=== PATIENT | male | born 2000 | race Hispanic/Latino ===

== ENCOUNTER 2022-07-18 09:39 | Emergency (ER) | payer SELFPAY | END 2022-07-18 17:20 | disposition home or self-care (01) | LOC: CSHERS 09:39 | DX: Z02.89 Encounter for other administrative examinations (principal); R00.0 Tachycardia, unspecified | CPT/HCPCS: 99281 ==

== ENCOUNTER 2022-09-22 00:36 | Emergency (ER) | payer SELFPAY ==
[2022-09-22 01:13] LABS: #Basophils 0.1 10x3/uL (0.0-0.2); #Eosinphils 0.1 10x3/uL (0.0-0.5); #Monocytes 0.5 10x3/uL (0.0-1.1); #Neutrophils 4.7 10x3/uL (1.5-8.4); %Basophils 0.9 % (0.0-2.0); %Eosinophils 1.3 % (0.0-6.0); %Lymphocytes 21.1 % (18.0-47.0); %Monocytes 7.5 % (0.0-10.0); %Neutrophils 68.9 % (40.0-75.0); Hemoglobin 15.7 g/dL (13.5-17.5); Mean Corpuscular HGB CONC 35.4 g/dL (32.0-36.0); Mean Corpuscular Hemoglobin 31.7 pg (27.0-33.0); Mean Corpuscular Volume 89.3 fl (81.2-95.1); Mean Platelet Volume 9.4 fl (7.4-10.4); Platelet Count 208 10x3/uL (150-450); RBC Distribution Width 11.8 % (11.5-14.5); Red Blood Cell (RBC) Count 4.96 10x6/uL (4.32-5.72); White Blood Cell (WBC) Count 6.8 10x3/uL (3.5-10.5)
[2022-09-22 01:30] LABS: ALT (SGPT) 16 U/L (8-55); AST (SGOT) 21 U/L (5-34); Albumin 4.8 g/dL (3.5-5.0); Alcohol 297 mg/dL (Less than 10); Alkaline Phosphatase 54 U/L (50-130); Anion Gap 16 mmol/L (10-20); BUN (Urea Nitrogen) 16 mg/dL (8.9-20.6); Bilirubin, Total 0.7 mg/dL (0.2-1.2); Calc. Creatinine Clearance 0 mL/min (70-130); Calcium 9.3 mg/dL (7.8-10.44); Carbon Dioxide 25 mmol/L (22-29); Chloride 105 mmol/L (98-107); Estimated GFR 119; Globulin 2.8 g/dL (2.4-3.5); Glucose 93 mg/dL (70-105); Magnesium 2.5 mg/dL (1.7-2.2); Protein, Total 7.6 g/dL (6.0-8.3); Sodium 142 mmol/L (136-145)
== END 2022-09-22 02:53 | disposition home or self-care (01) ==
LOC: CSHERS 00:36
DX: S09.90XA Unspecified injury of head, initial encounter (principal); F10.129 Alcohol abuse with intoxication, unspecified; R11.2 Nausea with vomiting, unspecified; Y90.8 Blood alcohol level of 240 mg/100 ml or more; W19.XXXA Unspecified fall, initial encounter
CPT/HCPCS: 36415; 70450; 70486; 72125; 80053; 80307; 83735; 85025